=== PATIENT | male | born 1990 | race Hispanic/Latino ===

== ENCOUNTER → 2018-02-11 | Outpatient (CLI) | payer BC ==
--- NOTE | 2018-02-11 11:00 | Diagnostic Imaging Report ---
PROCEDURE: Frontal and lateral views of the chest. COMPARISON: None. INDICATIONS: CHEST PAIN LEFT SIDE FINDINGS: Lines/tubes: None. Lungs: The lungs are well inflated and clear. There is no evidence of pneumonia or pulmonary edema. Pleura: There is no pleural effusion or pneumothorax. Heart and mediastinum: The cardiomediastinal silhouette is unremarkable. Bones: No acute bony abnormality. IMPRESSION: No acute radiographic abnormality. Dictated by: HARLAN WOOTEN M.D. on 02/11/2018 at 11:08 Electronically approved by: HARLAN WOOTEN M.D. on 02/11/2018 at 11:08
== END ==
LOC: RAD 09:57
PROVIDERS: ATTEND Internal Medicine Gastroenterology
DX: R09.1 Pleurisy (principal)
CPT/HCPCS: 71046

== ENCOUNTER → 2022-01-29 | Outpatient (CLI) | payer BC, OTHER ==
[~2022-01-29] MED LIST: IOPAMIDOL 370 MG/ML 100 ML INFUS..BTL INJ ONE
== END ==
LOC: CT 14:11
PROVIDERS: ATTEND Family Medicine
DX: R10.0 Acute abdomen (principal)
CPT/HCPCS: 74177; Q9967

== ENCOUNTER 2022-02-11 21:19 | Emergency (ER) | payer BC ==
[~2022-02-11] VITALS: Ht 175.3 cm; Wt 66.2 kg
[2022-02-11] MEDS ORDERED: ONDANSETRON HCL INJ 2MG/ML 2ML 2 MG/ML VIAL IV STA (22:45)
[2022-02-11] MEDS ORDERED: SODIUM CHLORIDE 0.9% 1000ML 1,000 ML IV SCH (22:45)
[2022-02-11] MEDS ORDERED: LORAZEPAM 0.5 MG TAB PO ONE (22:45)
[2022-02-11] MEDS ORDERED: ONDANSETRON HCL INJ 2MG/ML 2ML 2 MG/ML VIAL ONE (23:11)
[2022-02-11] MEDS ORDERED: LORAZEPAM 0.5 MG TAB ONE (23:31)
[2022-02-12 01:05] VITALS: BP 130/68
== END 2022-02-12 01:05 | disposition home or self-care (01) ==
LOC: FSED 21:35
DX: R11.2 Nausea with vomiting, unspecified (principal); R00.0 Tachycardia, unspecified; F41.9 Anxiety disorder, unspecified; T40.715A Adverse effect of cannabis, initial encounter; R50.9 Fever, unspecified; R94.31 Abnormal electrocardiogram [ECG] [EKG]; F17.210 Nicotine dependence, cigarettes, uncomplicated; N40.0 Benign prostatic hyperplasia without lower urinary tract symptoms
CPT/HCPCS: 80053; 80307; 81003; 85025; 93005; 96374; 99283; J2405; J7030